=== PATIENT | female | born 1995 | race African-American/Black ===

== ENCOUNTER 2019-10-31 15:06 | Observation (INO) | payer MEDICAID ==
[~2019-10-31] VITALS: Ht 165.1 cm; Wt 87.5 kg
[2019-10-31] MEDS ORDERED: FERR325T6 PO (15:24)
[2019-10-31] MEDS ORDERED: PNV1TABL76 PO (15:24)
== END 2019-10-31 16:10 | disposition home or self-care (01) ==
LOC: 8 EST LDRP 15:06
PROVIDERS: ADMIT Obstetrics & Gynecology; ATTEND Obstetrics & Gynecology
DX: O26.893 Other specified pregnancy related conditions, third trimester (principal); R10.9 Unspecified abdominal pain; O62.9 Abnormality of forces of labor, unspecified; Z3A.38 38 weeks gestation of pregnancy
CPT/HCPCS: 99281; G0378